=== PATIENT | male | born 1935 | race Caucasian/White ===

== ENCOUNTER → 2018-03-03 | Outpatient (CLI) | payer OTHER | END | disposition home or self-care (01) | LOC: RAH 07:41 | PROVIDERS: ATTEND Internal Medicine | DX: I70.90 Unspecified atherosclerosis (principal); Z87.891 Personal history of nicotine dependence | CPT/HCPCS: 76775 ==

== ENCOUNTER → 2018-06-24 | Outpatient (CLI) | payer OTHER ==
[~2018-06-24] MED LIST: ASPI-1197 PO; ISOS30TA6 PO; LISI2.5T2 PO; NITR0.4T50 SL; OXYB10TA PO; PRAV20TA4 PO; REGADENOSON 0.4 MG/5 ML PF SYG IVP SCH; TAMS0.4C32 PO
== END | disposition home or self-care (01) ==
LOC: SHCH 10:15
PROVIDERS: ATTEND Internal Medicine Cardiovascular Disease
DX: I25.119 Atherosclerotic heart disease of native coronary artery with unspecified angina pectoris (principal); R06.00 Dyspnea, unspecified
CPT/HCPCS: 78452; 93017; 96374; A9500 ×2; J2785

== ENCOUNTER → 2018-07-01 | Outpatient (CLI) | payer OTHER ==
[~2018-07-01] MED LIST changes: -REGADENOSON 0.4 MG/5 ML PF SYG IVP SCH
== END | disposition home or self-care (01) ==
LOC: SHCH 08:40
PROVIDERS: ATTEND Internal Medicine Cardiovascular Disease
DX: I25.10 Atherosclerotic heart disease of native coronary artery without angina pectoris (principal); R06.00 Dyspnea, unspecified
CPT/HCPCS: 93306

== ENCOUNTER → 2019-06-30 | Outpatient (CLI) | payer OTHER ==
[~2019-06-30] VITALS: Ht 177.8 cm; Wt 73.0 kg
[~2019-06-30] MED LIST changes: -OXYB10TA PO; +OXYB10TA2 PO; +REGADENOSON 0.4 MG/5 ML PF SYG IVP SCH
== END | disposition home or self-care (01) ==
LOC: SHCH 08:35
PROVIDERS: ATTEND Internal Medicine Cardiovascular Disease
DX: I25.119 Atherosclerotic heart disease of native coronary artery with unspecified angina pectoris (principal)
CPT/HCPCS: 78452; 93017; 96374; A9500 ×2; J2785

== ENCOUNTER → 2019-07-04 | Outpatient (CLI) | payer OTHER ==
[~2019-07-04] MED LIST changes: -REGADENOSON 0.4 MG/5 ML PF SYG IVP SCH
== END | disposition home or self-care (01) ==
LOC: RAH 13:26
PROVIDERS: ATTEND Internal Medicine
DX: M17.11 Unilateral primary osteoarthritis, right knee (principal); M79.671 Pain in right foot; M25.571 Pain in right ankle and joints of right foot; R22.9 Localized swelling, mass and lump, unspecified
CPT/HCPCS: 73562; 73610; 73630

== ENCOUNTER 2019-10-25 08:47 | Day surgery (SDC) | payer OTHER ==
[~2019-10-25 08:47] MED LIST changes: -ISOS30TA6 PO; -OXYB10TA2 PO; +OXYB10TA30 PO; +SODIUM CHLORIDE 0.9% 1000ML 1,000 ML IV ONE; -TAMS0.4C32 PO
[2019-10-25] MEDS ORDERED: CLOP75TA14 PO (09:26)
[2019-10-25] MEDS ORDERED: FERR325T22 PO (09:29)
[2019-10-25 09:42] VITALS: BP 136/65
[2019-10-25] MEDS ORDERED: PROPOFOL 10 MG/ML 20ML VIAL IV ONE ×3 (11:00→11:58)
[2019-10-25 12:08] VITALS: BP 134/65
[2019-10-25 12:13] VITALS: BP 131/65
[2019-10-25 12:18] VITALS: BP 136/65
[2019-10-25 12:23] VITALS: BP 124/65
[2019-10-25 12:28] VITALS: BP 126/65
--- NOTE | 2019-10-25 12:35 | NUR ---
dc pt dc home via w[facility],no distress noted. pt denied any pain or discomforts. pt accompanied by spouse.
== END 2019-10-25 12:35 | disposition home or self-care (01) ==
LOC: DAH 08:47 → ENDO 08:47
PROVIDERS: ATTEND Internal Medicine Gastroenterology
DX: D50.9 Iron deficiency anemia, unspecified (principal); K62.1 Rectal polyp; K57.30 Diverticulosis of large intestine without perforation or abscess without bleeding; K29.70 Gastritis, unspecified, without bleeding; K31.89 Other diseases of stomach and duodenum; I10 Essential (primary) hypertension; N40.0 Benign prostatic hyperplasia without lower urinary tract symptoms; R63.4 Abnormal weight loss; E78.5 Hyperlipidemia, unspecified; Z79.02 Long term (current) use of antithrombotics/antiplatelets; Z79.82 Long term (current) use of aspirin; Z95.5 Presence of coronary angioplasty implant and graft; Z98.49 Cataract extraction status, unspecified eye; Z68.21 Body mass index [BMI] 21.0-21.9, adult; Z79.01 Long term (current) use of anticoagulants; Z79.899 Other long term (current) drug therapy
CPT/HCPCS: 43239; 45381; 45385; A4215; A4221; A4222; A4223; A4606; A4620; A4649; A4663; J2704 ×3; J7030 ×2

== ENCOUNTER 2020-04-17 14:10 | Emergency (ER) | payer OTHER ==
[~2020-04-17 14:10] MED LIST changes: +CLOP75TA14 PO; +FERR325T22 PO; -SODIUM CHLORIDE 0.9% 1000ML 1,000 ML IV ONE
[2020-04-17] MEDS ORDERED: SODIUM CHLORIDE 0.9% 1000ML 1,000 ML IV ONE (14:11)
[2020-04-17] MEDS ORDERED: ONDANSETRON HCL 4 MG/2 ML VIAL ONE (14:44)
[2020-04-17 14:49] LABS: BASOPHILS % (AUTO) 0.3 % (0.0-5.0); HEMATOCRIT 38.3 % (42-54); LYMPHOCYTES % (AUTO) 16.3 % (21.0-51.0); MEAN CORPUSCULAR HEMOGLOBIN 29.9 pg (27.0-33.0); MEAN CORPUSCULAR HGB CONC 34.5 g/dL (32.0-36.0); MEAN CORPUSCULAR VOLUME 86.8 fL (79-99); MONOCYTES % (AUTO) 9.1 % (3.0-13.0); PLATELET COUNT (AUTO) 95 K/uL (130-400); RED BLOOD CELL COUNT(AUTO) 4.41 MIL/uL (4.50-6.20); RED CELL DISTRIBUTION WIDTH 13.2 % (11.0-15.5); WHITE BLOOD COUNT (AUTO) 3.2 K/uL (4.8-10.8)
[2020-04-17 14:58] LABS: CREATININE 1.5 mg/dL (0.5-1.5); POTASSIUM 4.6 mmol/L (3.5-5.1)
[2020-04-17 15:02] LABS: ALBUMIN 3.1 g/dL (3.5-5.0); BILIRUBIN,TOTAL 0.4 mg/dL (0.2-1.0)
== END 2020-04-17 17:25 | disposition home or self-care (01) ==
LOC: EDH 14:10
DX: U07.1 COVID-19 (principal); R11.10 Vomiting, unspecified; R42 Dizziness and giddiness; I10 Essential (primary) hypertension; Z87.891 Personal history of nicotine dependence
CPT/HCPCS: 36415; 80053; 84484; 85025; 93005; 96361; 96374; 99284; J2405; J7030

== ENCOUNTER 2020-04-19 17:19 | Inpatient (IN) | payer OTHER ==
[~2020-04-19] VITALS: Ht 177.8 cm; Wt 68.9 kg
[2020-04-19 18:21] LABS: BASOPHILS % (AUTO) 0.3 % (0.0-5.0); HEMATOCRIT 36.2 % (42-54); LYMPHOCYTES % (AUTO) 32.2 % (21.0-51.0); MEAN CORPUSCULAR HEMOGLOBIN 29.9 pg (27.0-33.0); MEAN CORPUSCULAR HGB CONC 34.3 g/dL (32.0-36.0); MEAN CORPUSCULAR VOLUME 87.2 fL (79-99); MONOCYTES % (AUTO) 10.4 % (3.0-13.0); NEUTROPHILS % (AUTO) 56.8 % (40.0-77.0); PLATELET COUNT (AUTO) 107 K/uL (130-400); RED BLOOD CELL COUNT(AUTO) 4.15 MIL/uL (4.50-6.20); RED CELL DISTRIBUTION WIDTH 13.2 % (11.0-15.5)
[2020-04-19 18:39] LABS: CREATININE 1.2 mg/dL (0.5-1.5); POTASSIUM 4.1 mmol/L (3.5-5.1)
[2020-04-19 18:50] LABS: ALBUMIN 2.6 g/dL (3.5-5.0); BILIRUBIN,TOTAL 0.3 mg/dL (0.2-1.0); TOTAL PROTEIN, SERUM 5.5 g/dL (6.0-8.3); TROPONIN I 0.06 ng/mL (0.00-0.06)
[2020-04-19] MEDS ORDERED: ONDANSETRON HCL 4 MG/2 ML VIAL ONE (18:56)
[2020-04-19] MEDS ORDERED: ACETAMINOPHEN 325 MG TAB ONE (18:57)
[2020-04-19 18:58] LABS: APPEARANCE,URINE CLEAR (CLEAR); BILIRUBIN,URINE NEGATIVE (NEGATIVE); COLOR,URINE YELLOW (YELLOW); GLUCOSE, URINE (UA) NEGATIVE (NEGATIVE); KETONES,URINE 5 mg/dL (NEGATIVE); LEUKOCYTE ESTERASE ,URINE NEGATIVE (NEGATIVE); NITRATE,URINE NEGATIVE (NEGATIVE); OCCULT BLOOD,URINE SMALL (NEGATIVE); PROTEIN,URINE 30 mg/dL (NEGATIVE); UROBILINOGEN,URINE 0.2 mg/dL (0.2-1.0)
[2020-04-19 19:04] LABS: PARTIAL THROMBOPLASTIN TIME 32.8 SEC (26.3-35.5); PROTHROMBIN TIME 10.8 SEC (9.6-11.6)
[2020-04-19 19:13] LABS: BACTERIA,URINE Few /HPF (None Seen); RBC,URINE None Seen /HPF (0-1); SQUAMOUS EPITHELIAL CELL,UR None Seen /HPF (0-2); WBC,URINE 0-1 /HPF (0-1)
[2020-04-19 19:22] LABS: BAND NEUTROPHILS % (MANUAL) 3 % (0-2); LYMPHOCYTES % (MANUAL) 19 % (22-44); MAN.DIFF COMMENT-IMPRESSION MANUAL DIFFERENTIAL; MONOCYTES % (MANUAL) 9 % (2-9); PLATELET MORPHOLOGY COMMENT SLIGHTLY DECREASED; REACTIVE LYMPHOCYTES 7 % (0-0); SEGMENTED NEUTROPHILS % 62 % (40-70)
[2020-04-19 20:04] LABS: ABG BASE EXCESS -1.2 mmol/L (-2.0-3.0); ABG HCO3 21.2 mmol/L (21.0-28.0); ABG OXYGEN SATURATION 94.7 % (95.0-99.0); ABG PCO2 30 mmHg (35-48)
[2020-04-19] MEDS ORDERED: ACETAMINOPHEN 325 MG TAB PO PRN ×2 (21:15)
[2020-04-19] MEDS: AZITHROMYCIN 500MG+NS 250ML 250 ML IV SCH (21:15)
[2020-04-19] MEDS ORDERED: ONDANSETRON HCL 4 MG/2 ML VIAL IV PRN (21:15)
[2020-04-19] MEDS ORDERED: DOXYCYCLINE 100MG+NS 250ML IV SCH (21:15)
[2020-04-19] MEDS ORDERED: ERGOCALCIFEROL (VITAMIN D2) 50,000 UNIT CAPSULE PO ONE (21:15)
[2020-04-19] MEDS: DOXYCYCLINE 100MG+NS 250ML 250 ML IV SCH (21:22)
[2020-04-19] MEDS ORDERED: AZITHROMYCIN 500MG+NS 250ML 250 ML IV ONE (21:53)
[2020-04-19] MEDS ORDERED: ERGOCALCIFEROL (VITAMIN D2) 50,000 UNIT CAPSULE ONE (21:54)
[2020-04-19] MEDS ORDERED: IOHEXOL-350 75 ML VIAL IV ONE (22:42)
[2020-04-19] MEDS ORDERED: DOXYCYCLINE 100MG+NS 250ML 250 ML IV ONE (23:11)
[2020-04-19] MEDS: SODIUM CHLORIDE 0.9% 1000ML 1,000 ML IV SCH (23:39)
[2020-04-20] VITALS: BP 150/90
[2020-04-20 04:00] VITALS: BP 126/48
[2020-04-20 06:03] LABS: LYMPHOCYTES % (AUTO) 34.5 % (21.0-51.0); MEAN CORPUSCULAR HGB CONC 34.4 g/dL (32.0-36.0); MONOCYTES % (AUTO) 7.1 % (3.0-13.0); NEUTROPHILS % (AUTO) 58.1 % (40.0-77.0); PLATELET COUNT (AUTO) 117 K/uL (130-400); RED BLOOD CELL COUNT(AUTO) 4.14 MIL/uL (4.50-6.20); RED CELL DISTRIBUTION WIDTH 13.2 % (11.0-15.5); WHITE BLOOD COUNT (AUTO) 3.1 K/uL (4.8-10.8)
[2020-04-20 06:27] LABS: ALBUMIN 2.5 g/dL (3.5-5.0); BILIRUBIN,TOTAL 0.5 mg/dL (0.2-1.0); CREATININE 1.2 mg/dL (0.5-1.5); CRP QUANTITATIVE 72.4 mg/L (0.00-9.0); POTASSIUM 4.3 mmol/L (3.5-5.1); TOTAL PROTEIN, SERUM 5.2 g/dL (6.0-8.3)
[2020-04-20 08:17] VITALS: BP 103/46
[2020-04-20] MEDS ORDERED: ENOXAPARIN SODIUM 40 MG/0.4 ML SYRINGE SQ SCH (09:00)
[2020-04-20] MEDS: ZINC SULFATE 220 CAPSULE PO SCH (09:15)
[2020-04-20] MEDS: ACETYLCYSTEINE 600 MG CAPSULE PO SCH ×2 (09:15→21:29)
[2020-04-20] MEDS: ASCORBIC ACID 500 MG TAB PO SCH (09:15)
[2020-04-20] MEDS: METHYLPREDNISOLONE SOD SUCC 40MG/ML 1ML IVP SCH ×3 (09:16→21:30)
[2020-04-20] MEDS: SODIUM CHLORIDE 0.9% 1000ML 1,000 ML IV SCH (11:29)
[2020-04-20 12:35] VITALS: BP 103/51
[2020-04-20] MEDS: DOXYCYCLINE 100MG+NS 250ML 250 ML IV SCH ×2 (14:20→21:29)
[2020-04-20 16:28] VITALS: BP 110/54
--- NOTE | 2020-04-20 18:20 | NUR ---
shift note pt aox2 with periodic confusion. vss. Consent for plasma obtained and sent to lab. covid rapid test done and positive. pending plasma release, will endorse to night leeanna.
--- NOTE | 2020-04-20 19:40 | NUR ---
(+) WAYNE CHOWDHURY-PENDING TO RECEIVE 2 PLASMA UNITS. Addendum: 04/21/20 at 0200 by GLENN HILLS RN RN Amended: Links added.
[2020-04-20 20:00] VITALS: BP 132/62
[2020-04-20] MEDS: AZITHROMYCIN 500MG+NS 250ML 250 ML IV SCH (21:29)
[2020-04-20] MEDS: ENOXAPARIN SODIUM 40 MG/0.4 ML SYRINGE SQ SCH (21:31)
[2020-04-21] VITALS: BP 140/62
--- NOTE | 2020-04-21 00:30 | NUR ---
PATIENT TO START TRANSFUSION OF 1 OF 2 UNITS OF CONVALESCENT PLASMA AT THIS TIME. WILL CONTINUE TO MONITOR.
--- NOTE | 2020-04-21 03:50 | NUR ---
PATIENT COMPLETED FIRST OF 2 UNITS OF CONVALESCENT PLASMA WITHOUT ANY ADVERSE REACTION. PATIENT AAOX3, DENIES DISCOMFORT. WILL CONTINUE TO MONITOR.
[2020-04-21 04:00] VITALS: BP 145/68
[2020-04-21 06:02] LABS: HEMATOCRIT 38.1 % (42-54); LYMPHOCYTES % (AUTO) 15.4 % (21.0-51.0); MEAN CORPUSCULAR HEMOGLOBIN 29.1 pg (27.0-33.0); MEAN CORPUSCULAR HGB CONC 33.6 g/dL (32.0-36.0); MEAN CORPUSCULAR VOLUME 86.6 fL (79-99); MONOCYTES % (AUTO) 6.1 % (3.0-13.0); NEUTROPHILS % (AUTO) 78.2 % (40.0-77.0); PLATELET COUNT (AUTO) 145 K/uL (130-400); RED CELL DISTRIBUTION WIDTH 13.3 % (11.0-15.5); WHITE BLOOD COUNT (AUTO) 3.1 K/uL (4.8-10.8)
[2020-04-21 06:34] LABS: ALANINE AMINOTRANSFERASE 39 U/L (12-78); ALBUMIN 2.5 g/dL (3.5-5.0); ASPARTATE AMINOTRANSFERASE 46 U/L (10-37); BILIRUBIN,TOTAL 0.4 mg/dL (0.2-1.0); CARBON DIOXIDE 24 mmol/L (21-32); CHLORIDE 105 mmol/L (101-111); GLOMERULAR FILTR. RATE CALC 75 mL/min (>60); GLUCOSE,RANDOM 157 mg/dL (70-105); LACTATE DEHYDROGENASE 232 U/L (81-234); POTASSIUM 4.1 mmol/L (3.5-5.1); SODIUM SERUM 139 mmol/L (136-145); TOTAL PROTEIN, SERUM 5.6 g/dL (6.0-8.3); UREA NITROGEN, BLOOD 19 mg/dL (7-18)
[2020-04-21 09:15] VITALS: BP 142/62
[2020-04-21] MEDS: DOXYCYCLINE 100MG+NS 250ML 250 ML IV SCH ×2 (09:18→20:20)
[2020-04-21] MEDS: METHYLPREDNISOLONE SOD SUCC 40MG/ML 1ML IVP SCH ×3 (09:18→20:20)
[2020-04-21] MEDS: ASCORBIC ACID 500 MG TAB PO SCH (09:19)
[2020-04-21] MEDS: ZINC SULFATE 220 CAPSULE PO SCH (09:19)
[2020-04-21] MEDS: ACETYLCYSTEINE 600 MG CAPSULE PO SCH ×2 (09:19→20:20)
[2020-04-21] MEDS: ENOXAPARIN SODIUM 40 MG/0.4 ML SYRINGE SQ SCH ×2 (09:20→20:20)
[2020-04-21 11:49] VITALS: BP 128/63
[2020-04-21 16:20] VITALS: BP 132/52
[2020-04-21] MEDS: AZITHROMYCIN 500MG+NS 250ML 250 ML IV SCH (20:20)
[2020-04-21 20:30] VITALS: BP 138/67
[2020-04-22 00:45] VITALS: BP 125/57
[2020-04-22 05:10] VITALS: BP 135/65
[2020-04-22 05:57] LABS: BASOPHILS % (AUTO) 0.1 % (0.0-5.0); HEMATOCRIT 37.2 % (42-54); LYMPHOCYTES % (AUTO) 5.5 % (21.0-51.0); MEAN CORPUSCULAR HEMOGLOBIN 29.4 pg (27.0-33.0); MEAN CORPUSCULAR HGB CONC 34.1 g/dL (32.0-36.0); MEAN CORPUSCULAR VOLUME 86.1 fL (79-99); MONOCYTES % (AUTO) 4.6 % (3.0-13.0); NEUTROPHILS % (AUTO) 89.1 % (40.0-77.0); PLATELET COUNT (AUTO) 183 K/uL (130-400); RED BLOOD CELL COUNT(AUTO) 4.32 MIL/uL (4.50-6.20); RED CELL DISTRIBUTION WIDTH 13.5 % (11.0-15.5); WHITE BLOOD COUNT (AUTO) 9.6 K/uL (4.8-10.8)
[2020-04-22 06:14] LABS: ALANINE AMINOTRANSFERASE 37 U/L (12-78); ALBUMIN 2.5 g/dL (3.5-5.0); ASPARTATE AMINOTRANSFERASE 39 U/L (10-37); BILIRUBIN,TOTAL 0.5 mg/dL (0.2-1.0); CARBON DIOXIDE 27 mmol/L (21-32); CHLORIDE 107 mmol/L (101-111); CREATININE 0.9 mg/dL (0.5-1.5); GLOMERULAR FILTR. RATE CALC 85 mL/min (>60); GLUCOSE,RANDOM 153 mg/dL (70-105); LACTATE DEHYDROGENASE 231 U/L (81-234); POTASSIUM 4.4 mmol/L (3.5-5.1); SODIUM SERUM 140 mmol/L (136-145); TOTAL PROTEIN, SERUM 5.5 g/dL (6.0-8.3); UREA NITROGEN, BLOOD 21 mg/dL (7-18)
[2020-04-22 08:00] VITALS: BP 134/57
[2020-04-22] MEDS: DOXYCYCLINE 100MG+NS 250ML 250 ML IV SCH (08:33)
[2020-04-22] MEDS: ZINC SULFATE 220 CAPSULE PO SCH (08:34)
[2020-04-22] MEDS: ASCORBIC ACID 500 MG TAB PO SCH (08:34)
[2020-04-22] MEDS: ACETYLCYSTEINE 600 MG CAPSULE PO SCH (08:34)
[2020-04-22] MEDS: ENOXAPARIN SODIUM 40 MG/0.4 ML SYRINGE SQ SCH (08:35)
[2020-04-22] MEDS: METHYLPREDNISOLONE SOD SUCC 40MG/ML 1ML IVP SCH ×2 (08:36→14:14)
[2020-04-22] MEDS ORDERED: ASPI-1012 PO ×2 (10:14)
[2020-04-22] MEDS ORDERED: BENZ-39 PO ×2 (10:14)
[2020-04-22] MEDS ORDERED: DEXA6TAB PO ×2 (10:14)
[2020-04-22 12:00] VITALS: BP 122/61
[2020-04-22 16:00] VITALS: BP 139/63
--- NOTE | 2020-04-22 17:20 | NUR ---
pt d/c home. iv removed. discharge instruction given to pt an dfamily. vss. room air d/c home accompagnied by grandson and private vehicle.
== END 2020-04-22 17:05 | disposition home or self-care (01) | DRG 177 ==
LOC: EDH 17:19 → EDHIP 21:10 → OBSVTOIN 21:10 → 4AH 23:27
PROVIDERS: ADMIT Internal Medicine; ATTEND Internal Medicine
PROC: XW13325 Transfusion of Convalescent Plasma (Nonautologous) into Peripheral Vein, Percutaneous Approach, New Technology Group 5 (ICD-10-PCS; principal; 2020-04-21)
DX: U07.1 COVID-19 (principal); J96.01 Acute respiratory failure with hypoxia; G93.41 Metabolic encephalopathy; J12.89 Other viral pneumonia; D61.818 Other pancytopenia; I25.10 Atherosclerotic heart disease of native coronary artery without angina pectoris; I10 Essential (primary) hypertension; E78.5 Hyperlipidemia, unspecified; I44.7 Left bundle-branch block, unspecified; Z82.49 Family history of ischemic heart disease and other diseases of the circulatory system; Z86.73 Personal history of transient ischemic attack (TIA), and cerebral infarction without residual deficits; Z87.891 Personal history of nicotine dependence; Z95.5 Presence of coronary angioplasty implant and graft; Z88.0 Allergy status to penicillin; Z88.8 Allergy status to other drugs, medicaments and biological substances
CPT/HCPCS: 36415; 36600; 70450; 71045; 71275; 80053; 81001; 82550; 82728; 82803; 83605; 83615; 83874; 84145; 84484; 85025; 85378; 85610; 85730; 86140; 86900; 86901; 86927; 87040; 87088; 87426; 87486; 87581; 87633; 87798; 93005; G0378; J0456; J1650; J2405; J2920; J3490; J7030; Q9967

== ENCOUNTER 2020-04-25 16:40 | Inpatient (IN) | payer OTHER ==
[~2020-04-25] VITALS: Ht 177.8 cm; Wt 66.2 kg
[~2020-04-25 16:40] MED LIST changes: +ASPI-1012 PO; +BENZ-39 PO; +DEXA6TAB PO
[2020-04-25] MEDS ORDERED: ONDANSETRON HCL 4 MG/2 ML VIAL ONE (17:19)
[2020-04-25] MEDS ORDERED: FAMOTIDINE/PF 20 MG/2 ML VIAL IV ONE (17:20)
[2020-04-25 17:21] LABS: BASOPHILS % (AUTO) 0.4 % (0.0-5.0); EOSINOPHILS % (AUTO) 1.3 % (0.0-8.0); HEMATOCRIT 42.2 % (42-54); MEAN CORPUSCULAR HEMOGLOBIN 29.3 pg (27.0-33.0); MEAN CORPUSCULAR HGB CONC 33.4 g/dL (32.0-36.0); MEAN CORPUSCULAR VOLUME 87.6 fL (79-99); MONOCYTES % (AUTO) 10.4 % (3.0-13.0); NEUTROPHILS % (AUTO) 70.5 % (40.0-77.0); PLATELET COUNT (AUTO) 194 K/uL (130-400); RED BLOOD CELL COUNT(AUTO) 4.82 MIL/uL (4.50-6.20); RED CELL DISTRIBUTION WIDTH 13.6 % (11.0-15.5); WHITE BLOOD COUNT (AUTO) 5.5 K/uL (4.8-10.8)
[2020-04-25] MEDS ORDERED: METHYLPREDNISOLONE SOD SUCC 40MG/ML 1ML ONE (17:51)
[2020-04-25] MEDS ORDERED: DOXYCYCLINE 100MG+NS 250ML 250 ML IV ONE (17:52)
[2020-04-25 18:03] LABS: CREATININE 0.9 mg/dL (0.5-1.5)
[2020-04-25 18:08] LABS: ALBUMIN 2.5 g/dL (3.5-5.0); BILIRUBIN,TOTAL 0.7 mg/dL (0.2-1.0); TOTAL PROTEIN, SERUM 5.9 g/dL (6.0-8.3)
[2020-04-25 19:20] LABS: ABG BASE EXCESS 0.6 mmol/L (-2.0-3.0); ABG HCO3 23.4 mmol/L (21.0-28.0); ABG PCO2 32 mmHg (35-48)
[2020-04-25 19:43] LABS: PARTIAL THROMBOPLASTIN TIME 29.3 SEC (26.3-35.5); PROTHROMBIN TIME 10.8 SEC (9.6-11.6)
[2020-04-25 20:27] LABS: APPEARANCE,URINE Clear (CLEAR); BILIRUBIN,URINE Negative (NEGATIVE); COLOR,URINE Dark Yellow (YELLOW); GLUCOSE, URINE (UA) Negative (NEGATIVE); KETONES,URINE Trace mg/dL (NEGATIVE); LEUKOCYTE ESTERASE ,URINE Trace (NEGATIVE); NITRATE,URINE Negative (NEGATIVE); OCCULT BLOOD,URINE Negative (NEGATIVE); PROTEIN,URINE POS 1+ mg/dL (NEGATIVE)
[2020-04-25 21:01] LABS: CREATINE KINASE, TOTAL 20 U/L (21-232); MYOGLOBIN 37 ng/mL (10-92); TROPONIN I < 0.04 ng/mL (0.00-0.06)
[2020-04-25 21:03] LABS: BACTERIA,URINE Few /HPF (None Seen); MUCUS,URINE Few LPF (None Seen); SQUAMOUS EPITHELIAL CELL,UR 0-2 /HPF (0-2)
[2020-04-25] MEDS ORDERED: MEROPENEM 1 GM VIAL ONE (21:10)
[2020-04-25] MEDS ORDERED: SODIUM CHLORIDE 0.9% 50 ML IV ONE (21:11)
[2020-04-25] MEDS: SODIUM CHLORIDE 0.9% 1000ML 1,000 ML IV SCH (21:36)
[2020-04-25] MEDS ORDERED: DOXYCYCLINE 100MG+NS 250ML IV SCH (21:45)
[2020-04-25] MEDS ORDERED: ERGOCALCIFEROL (VITAMIN D2) 50,000 UNIT CAPSULE PO ONE (21:45)
[2020-04-25] MEDS ORDERED: ONDANSETRON HCL 4 MG/2 ML VIAL IV PRN (21:45)
[2020-04-25] MEDS ORDERED: ACETAMINOPHEN 325 MG TAB PO PRN ×2 (21:45)
[2020-04-25] MEDS ORDERED: AZITHROMYCIN 500MG+NS 250ML 250 ML IV SCH (21:45)
[2020-04-25] MEDS ORDERED: IOHEXOL 350 MG/ML 100ML INFUS..BTL IV ONE (22:21)
[2020-04-26] MEDS ORDERED: METHYLPREDNISOLONE SOD SUCC 40MG/ML 1ML ONE ×2 (00:25→07:53)
[2020-04-26] MEDS ORDERED: AZITHROMYCIN 500MG+NS 250ML 250 ML IV ONE (00:26)
[2020-04-26] MEDS ORDERED: ERGOCALCIFEROL (VITAMIN D2) 50,000 UNIT CAPSULE ONE (00:26)
[2020-04-26] MEDS ORDERED: DOXYCYCLINE 100MG+NS 250ML 0 ML IV ONE (00:27)
[2020-04-26 04:16] LABS: HEMATOCRIT 36.9 % (42-54); LYMPHOCYTES % (AUTO) 12.8 % (21.0-51.0); MEAN CORPUSCULAR HEMOGLOBIN 29.4 pg (27.0-33.0); MEAN CORPUSCULAR HGB CONC 33.6 g/dL (32.0-36.0); MEAN CORPUSCULAR VOLUME 87.4 fL (79-99); MONOCYTES % (AUTO) 3.7 % (3.0-13.0); NEUTROPHILS % (AUTO) 80.6 % (40.0-77.0); PLATELET COUNT (AUTO) 176 K/uL (130-400); RED BLOOD CELL COUNT(AUTO) 4.22 MIL/uL (4.50-6.20); RED CELL DISTRIBUTION WIDTH 13.5 % (11.0-15.5); WHITE BLOOD COUNT (AUTO) 3.8 K/uL (4.8-10.8)
[2020-04-26 04:36] LABS: ALANINE AMINOTRANSFERASE 91 U/L (12-78); ALBUMIN 2.3 g/dL (3.5-5.0); ASPARTATE AMINOTRANSFERASE 42 U/L (10-37); BILIRUBIN,TOTAL 0.7 mg/dL (0.2-1.0); CARBON DIOXIDE 26 mmol/L (21-32); CHLORIDE 104 mmol/L (101-111); CREATININE 0.9 mg/dL (0.5-1.5); GLOMERULAR FILTR. RATE CALC 85 mL/min (>60); GLUCOSE,RANDOM 173 mg/dL (70-105); LACTATE DEHYDROGENASE 212 U/L (81-234); POTASSIUM 4.4 mmol/L (3.5-5.1); SODIUM SERUM 138 mmol/L (136-145); TOTAL PROTEIN, SERUM 5.6 g/dL (6.0-8.3); UREA NITROGEN, BLOOD 21 mg/dL (7-18)
[2020-04-26] MEDS: SODIUM CHLORIDE 0.9% 1000ML 1,000 ML IV SCH (07:36)
[2020-04-26] MEDS ORDERED: ZINC SULFATE 220 CAPSULE ONE (07:53)
[2020-04-26] MEDS ORDERED: ACETYLCYSTEINE 600 MG CAPSULE ONE (07:53)
[2020-04-26] MEDS ORDERED: ASCORBIC ACID 500 MG TAB ONE (07:53)
[2020-04-26] MEDS ORDERED: ENOXAPARIN SODIUM 40 MG/0.4 ML SYRINGE SQ ONE (07:54)
[2020-04-26] MEDS ORDERED: DOXYCYCLINE 100MG+NS 250ML 250 ML IV ONE (07:54)
[2020-04-26] MEDS ORDERED: FAMOTIDINE/PF 20 MG/2 ML VIAL IV ONE (07:55)
[2020-04-26] MEDS: ASCORBIC ACID 500 MG TAB PO SCH (09:00)
[2020-04-26] MEDS: FAMOTIDINE/PF 20 MG/2 ML VIAL IV SCH ×2 (09:00→20:24)
[2020-04-26] MEDS: ACETYLCYSTEINE 600 MG CAPSULE PO SCH ×2 (09:00→20:27)
[2020-04-26] MEDS ORDERED: ENOXAPARIN SODIUM 40 MG/0.4 ML SYRINGE SQ SCH (09:00)
[2020-04-26] MEDS: ZINC SULFATE 220 CAPSULE PO SCH (09:00)
[2020-04-26] MEDS ORDERED: METHYLPREDNISOLONE SOD SUCC 40MG/ML 1ML IVP SCH (09:00)
[2020-04-26] MEDS ORDERED: ERGOCALCIFEROL (VITAMIN D2) 50,000 UNIT CAPSULE PO SCH (10:00)
[2020-04-26] MEDS: AZITHROMYCIN 250 MG TABLET PO SCH (10:15)
[2020-04-26] MEDS: ENOXAPARIN SODIUM 40 MG/0.4 ML SYRINGE SQ SCH ×2 (10:15→20:23)
[2020-04-26] MEDS: METHYLPREDNISOLONE SOD SUCC 40MG/ML 1ML IVP SCH ×2 (10:30→18:30)
--- NOTE | 2020-04-26 11:09 | NUR ---
patient still in ER department, awaiting for patient to be transferred to medical floor in order to be able to initiate skilled Physical Therapy Evaluation as order by . Addendum: 04/26/20 at 1110 by JEANNINE MASON, PT PT Amended: Links added.
[2020-04-26] MEDS ORDERED: AZITHROMYCIN 250 MG TABLET PO ONE (12:01)
--- NOTE | 2020-04-26 16:14 | NUR ---
CM NOTE/IA UNABLE TO MEET WITH PATIENT, NEXT OF KIN CALLED, SHAI VILLEDA. PER SPOUSE, IS IN ED HERSELF FOR SIMILAR SYMPTOMS. PER SPOUSE, PATIENT LIVES WITH HER, IS NORMALLY INDEPENDENT WITH BUT HAS BEEN VERY WEAK, NO USE OF DME OR HOME HEALTH, AND SPOUSE IS OPEN TO [facility] IF MD RECOMMENDS. Addendum: 04/26/20 at 1621 by LORA KING RN CM Amended: Links added.
[2020-04-26 16:49] VITALS: BP 127/60
[2020-04-26] MEDS ORDERED: ISOS30TA6 PO (18:24)
[2020-04-26] MEDS ORDERED: CLOP75TA32 PO (18:24)
[2020-04-26] MEDS ORDERED: FERR-82 PO (18:24)
[2020-04-26] MEDS ORDERED: PRAV40TA3 PO (18:24)
[2020-04-26] MEDS ORDERED: tamsulosin PO (18:24)
[2020-04-26 21:32] VITALS: BP 136/67
[2020-04-27 00:31] VITALS: BP 131/58
--- NOTE | 2020-04-27 02:00 | NUR ---
Patient with period of confusion, pull out his IV access and shelter monitor. Pressure dressing applied at site. IV restart to right fore arm, 20 moises with good blood return. Patient reoriented to environment. Bed bath given, gown changed. Patient daughter delivered his reading glasses at start of shift. Glasses with pt at bedside. No new variance at this time. Patient is in stable condition. Following POC.
[2020-04-27] MEDS: METHYLPREDNISOLONE SOD SUCC 40MG/ML 1ML IVP SCH ×3 (02:32→17:34)
[2020-04-27 04:51] VITALS: BP 145/84
[2020-04-27 04:52] LABS: BASOPHILS % (AUTO) 0.1 % (0.0-5.0); LYMPHOCYTES % (AUTO) 10.1 % (21.0-51.0); MEAN CORPUSCULAR HEMOGLOBIN 29.6 pg (27.0-33.0); MEAN CORPUSCULAR HGB CONC 34.3 g/dL (32.0-36.0); MEAN CORPUSCULAR VOLUME 86.2 fL (79-99); MONOCYTES % (AUTO) 6.6 % (3.0-13.0); NEUTROPHILS % (AUTO) 82.2 % (40.0-77.0); PLATELET COUNT (AUTO) 203 K/uL (130-400); RED BLOOD CELL COUNT(AUTO) 4.06 MIL/uL (4.50-6.20); RED CELL DISTRIBUTION WIDTH 13.4 % (11.0-15.5); WHITE BLOOD COUNT (AUTO) 6.9 K/uL (4.8-10.8)
[2020-04-27 05:07] LABS: ALANINE AMINOTRANSFERASE 63 U/L (12-78); ALBUMIN 2.1 g/dL (3.5-5.0); ASPARTATE AMINOTRANSFERASE 27 U/L (10-37); BILIRUBIN,TOTAL 0.6 mg/dL (0.2-1.0); CARBON DIOXIDE 24 mmol/L (21-32); CHLORIDE 107 mmol/L (101-111); CREATININE 0.8 mg/dL (0.5-1.5); GLOMERULAR FILTR. RATE CALC 97 mL/min (>60); GLUCOSE,RANDOM 126 mg/dL (70-105); LACTATE DEHYDROGENASE 175 U/L (81-234); SODIUM SERUM 141 mmol/L (136-145); TOTAL PROTEIN, SERUM 5.1 g/dL (6.0-8.3); UREA NITROGEN, BLOOD 20 mg/dL (7-18)
[2020-04-27 06:56] VITALS: BP 133/67
[2020-04-27] MEDS ORDERED: DEXAMETHASONE 4 MG TAB PO SCH (09:00)
[2020-04-27] MEDS ORDERED: ASCORBIC ACID 500 MG TAB PO SCH (09:00)
[2020-04-27] MEDS ORDERED: ZINC SULFATE 220 CAPSULE PO SCH (09:00)
[2020-04-27] MEDS: ASCORBIC ACID 500 MG TAB PO SCH (09:40)
[2020-04-27] MEDS: ASPIRIN 81MG TAB.CHEW PO SCH (09:40)
[2020-04-27] MEDS: ACETYLCYSTEINE 600 MG CAPSULE PO SCH ×2 (09:40→21:15)
[2020-04-27] MEDS: ENOXAPARIN SODIUM 40 MG/0.4 ML SYRINGE SQ SCH ×2 (09:41→21:14)
[2020-04-27] MEDS: FAMOTIDINE/PF 20 MG/2 ML VIAL IV SCH ×2 (09:41→21:13)
[2020-04-27] MEDS: ZINC SULFATE 220 CAPSULE PO SCH (09:41)
[2020-04-27] MEDS: AZITHROMYCIN 250 MG TABLET PO SCH (10:46)
--- NOTE | 2020-04-27 11:06 | NUR ---
spoke with son in [place], halfway plan was discharged assisted living to help with patient & spouse, updated on patient status.
[2020-04-27 11:27] VITALS: BP 148/67
--- NOTE | 2020-04-27 13:24 | NUR ---
Up to bedside chair for meal, standby assist to avoid fall; linens & gown changed, non-skid socks applied; speaking to ad lynette.
[2020-04-27 15:52] VITALS: BP 143/53
[2020-04-27 20:55] VITALS: BP 125/58
[2020-04-27 21:54] LABS: BASOPHILS % (AUTO) 0.1 % (0.0-5.0); LYMPHOCYTES % (AUTO) 6.3 % (21.0-51.0); MEAN CORPUSCULAR HEMOGLOBIN 29.7 pg (27.0-33.0); MEAN CORPUSCULAR HGB CONC 34.1 g/dL (32.0-36.0); MEAN CORPUSCULAR VOLUME 87.3 fL (79-99); MONOCYTES % (AUTO) 6.4 % (3.0-13.0); NEUTROPHILS % (AUTO) 86.2 % (40.0-77.0); PLATELET COUNT (AUTO) 251 K/uL (130-400); RED BLOOD CELL COUNT(AUTO) 4.24 MIL/uL (4.50-6.20); RED CELL DISTRIBUTION WIDTH 13.3 % (11.0-15.5); WHITE BLOOD COUNT (AUTO) 7.3 K/uL (4.8-10.8)
[2020-04-28 00:22] VITALS: BP 145/70
[2020-04-28] MEDS: METHYLPREDNISOLONE SOD SUCC 40MG/ML 1ML IVP SCH ×3 (02:26→18:00)
[2020-04-28 04:12] VITALS: BP 152/67
[2020-04-28 05:18] LABS: BASOPHILS % (AUTO) 0.1 % (0.0-5.0); MEAN CORPUSCULAR HEMOGLOBIN 29.2 pg (27.0-33.0); MEAN CORPUSCULAR HGB CONC 33.8 g/dL (32.0-36.0); MEAN CORPUSCULAR VOLUME 86.4 fL (79-99); MONOCYTES % (AUTO) 5.6 % (3.0-13.0); NEUTROPHILS % (AUTO) 85.5 % (40.0-77.0); PLATELET COUNT (AUTO) 236 K/uL (130-400); RED BLOOD CELL COUNT(AUTO) 4.28 MIL/uL (4.50-6.20); RED CELL DISTRIBUTION WIDTH 13.2 % (11.0-15.5); WHITE BLOOD COUNT (AUTO) 7.4 K/uL (4.8-10.8)
[2020-04-28 05:43] LABS: ALANINE AMINOTRANSFERASE 67 U/L (12-78); ALBUMIN 2.2 g/dL (3.5-5.0); ASPARTATE AMINOTRANSFERASE 30 U/L (10-37); BILIRUBIN,TOTAL 0.7 mg/dL (0.2-1.0); CARBON DIOXIDE 25 mmol/L (21-32); CHLORIDE 106 mmol/L (101-111); CREATININE 0.8 mg/dL (0.5-1.5); GLOMERULAR FILTR. RATE CALC 97 mL/min (>60); GLUCOSE,RANDOM 140 mg/dL (70-105); LACTATE DEHYDROGENASE 194 U/L (81-234); POTASSIUM 4.2 mmol/L (3.5-5.1); SODIUM SERUM 139 mmol/L (136-145); TOTAL PROTEIN, SERUM 5.2 g/dL (6.0-8.3); UREA NITROGEN, BLOOD 28 mg/dL (7-18)
[2020-04-28 07:00] VITALS: BP 155/77
[2020-04-28] MEDS: FAMOTIDINE/PF 20 MG/2 ML VIAL IV SCH ×2 (09:12→21:12)
[2020-04-28] MEDS: ACETYLCYSTEINE 600 MG CAPSULE PO SCH ×2 (09:12→21:12)
[2020-04-28] MEDS: ZINC SULFATE 220 CAPSULE PO SCH (09:12)
[2020-04-28] MEDS: ASPIRIN 81MG TAB.CHEW PO SCH (09:12)
[2020-04-28] MEDS: ASCORBIC ACID 500 MG TAB PO SCH (09:12)
[2020-04-28] MEDS: ENOXAPARIN SODIUM 40 MG/0.4 ML SYRINGE SQ SCH ×2 (09:13→21:16)
[2020-04-28] MEDS: AZITHROMYCIN 250 MG TABLET PO SCH (10:39)
[2020-04-28 11:00] VITALS: BP 126/61
--- NOTE | 2020-04-28 12:41 | NUR ---
held for regular therapist janet Addendum: 04/28/20 at 1241 by ZACHERY TIJERINA, PT PT Amended: Links added.
[2020-04-28 16:00] VITALS: BP 141/64
[2020-04-28 20:15] VITALS: BP 131/61
[2020-04-28 21:55] LABS: BASOPHILS % (AUTO) 0.1 % (0.0-5.0); HEMATOCRIT 38.2 % (42-54); LYMPHOCYTES % (AUTO) 7.1 % (21.0-51.0); MEAN CORPUSCULAR HEMOGLOBIN 29.6 pg (27.0-33.0); MONOCYTES % (AUTO) 4.6 % (3.0-13.0); NEUTROPHILS % (AUTO) 87.1 % (40.0-77.0); PLATELET COUNT (AUTO) 268 K/uL (130-400); RED BLOOD CELL COUNT(AUTO) 4.39 MIL/uL (4.50-6.20); RED CELL DISTRIBUTION WIDTH 13.2 % (11.0-15.5); WHITE BLOOD COUNT (AUTO) 9.3 K/uL (4.8-10.8)
[2020-04-29] VITALS (7 sets, daily range): BP systolic 132–167; BP diastolic 64–75
[2020-04-29] MEDS: METHYLPREDNISOLONE SOD SUCC 40MG/ML 1ML IVP SCH ×3 (03:31→18:35)
[2020-04-29 04:44] LABS: BASOPHILS % (AUTO) 0.1 % (0.0-5.0); HEMATOCRIT 35.9 % (42-54); LYMPHOCYTES % (AUTO) 12.6 % (21.0-51.0); MEAN CORPUSCULAR HEMOGLOBIN 29.4 pg (27.0-33.0); MEAN CORPUSCULAR VOLUME 86.5 fL (79-99); MONOCYTES % (AUTO) 7.8 % (3.0-13.0); NEUTROPHILS % (AUTO) 78.5 % (40.0-77.0); PLATELET COUNT (AUTO) 227 K/uL (130-400); RED BLOOD CELL COUNT(AUTO) 4.15 MIL/uL (4.50-6.20); RED CELL DISTRIBUTION WIDTH 13.2 % (11.0-15.5); WHITE BLOOD COUNT (AUTO) 7.7 K/uL (4.8-10.8)
[2020-04-29 05:02] LABS: ALBUMIN 2.3 g/dL (3.5-5.0); BILIRUBIN,TOTAL 0.6 mg/dL (0.2-1.0); CREATININE 0.8 mg/dL (0.5-1.5); POTASSIUM 4.5 mmol/L (3.5-5.1); TOTAL PROTEIN, SERUM 5.1 g/dL (6.0-8.3)
[2020-04-29] MEDS: ASCORBIC ACID 500 MG TAB PO SCH (08:39)
[2020-04-29] MEDS: FAMOTIDINE/PF 20 MG/2 ML VIAL IV SCH ×2 (08:39→21:08)
[2020-04-29] MEDS: ZINC SULFATE 220 CAPSULE PO SCH (08:39)
[2020-04-29] MEDS: ACETYLCYSTEINE 600 MG CAPSULE PO SCH ×2 (08:39→21:08)
[2020-04-29] MEDS: ASPIRIN 81MG TAB.CHEW PO SCH (08:39)
[2020-04-29] MEDS: ENOXAPARIN SODIUM 40 MG/0.4 ML SYRINGE SQ SCH ×2 (08:41→21:13)
--- NOTE | 2020-04-29 09:34 | NUR ---
cm note call made to pt's spouse regarding [facility] has called and said that they have approval for mr puente at at [facility], however, pt now states that they wish to go to [facility] and do not want to go to [facility]. requested that i cancel the referral to [facility] for Ms and Mr Puente, call made to Ann with [facility] and updated on this. states she will cancel the referrals. updated Lisa with [facility] and states will submit request, and has rooms for both pts. per lisa she did update daughter as well.
[2020-04-30] MEDS: METHYLPREDNISOLONE SOD SUCC 40MG/ML 1ML IVP SCH ×3 (01:51→18:18)
[2020-04-30 03:09] VITALS: BP 156/69
[2020-04-30 04:46] LABS: ALBUMIN 2.3 g/dL (3.5-5.0); BILIRUBIN,TOTAL 0.8 mg/dL (0.2-1.0); CREATININE 0.8 mg/dL (0.5-1.5); POTASSIUM 4.3 mmol/L (3.5-5.1); TOTAL PROTEIN, SERUM 5.1 g/dL (6.0-8.3)
[2020-04-30] MEDS: ACETYLCYSTEINE 600 MG CAPSULE PO SCH (08:50)
[2020-04-30] MEDS: ASPIRIN 81MG TAB.CHEW PO SCH (08:50)
[2020-04-30] MEDS: ZINC SULFATE 220 CAPSULE PO SCH (08:51)
[2020-04-30] MEDS: ENOXAPARIN SODIUM 40 MG/0.4 ML SYRINGE SQ SCH (08:51)
[2020-04-30] MEDS: ASCORBIC ACID 500 MG TAB PO SCH (08:51)
[2020-04-30] MEDS: FAMOTIDINE/PF 20 MG/2 ML VIAL IV SCH (08:51)
[2020-04-30 10:01] VITALS: BP 145/66
--- NOTE | 2020-04-30 15:38 | NUR ---
Report Called Called report to [facility] to [facility]. All questions answered and concerns addressed at this time. Will notify EMS of transfer. Pt and pt's updated on POC, both verbalize understanding.
--- NOTE | 2020-04-30 16:17 | NUR ---
DC PLAN LET DR. LARIOS KNOW THAT PATIENT ACCEPTED TO [facility]. GAVE OKAY TO DC ON CURRENT MEDICATIONS. LET NURSE KNOW. EMS SET UP. PER SARAH DUE TO POSITIVE COVID NOT ABLE TO GO VIA [facility]. EMS SET UP FOR DEBILITY. Addendum: 04/30/20 at 1626 by CARMEN LING RN CM Amended: Links added.
--- NOTE | 2020-04-30 18:36 | NUR ---
Pt discharged to [facility] via EMS. IV access and tele monitor removed. Pt denies any needs or complaints. Facesheet and pt information packet given to EMS paramedics, all questions answered and concerns addressed.
== END 2020-04-30 18:35 | DRG 177 ==
LOC: EDH 16:40 → EDHIP 21:36 → 2DH 04-26 16:34
PROVIDERS: ADMIT Internal Medicine; ATTEND Internal Medicine
DX: U07.1 COVID-19 (principal); J12.89 Other viral pneumonia; E46 Unspecified protein-calorie malnutrition; I25.10 Atherosclerotic heart disease of native coronary artery without angina pectoris; E78.5 Hyperlipidemia, unspecified; I10 Essential (primary) hypertension; Z82.49 Family history of ischemic heart disease and other diseases of the circulatory system; Z87.891 Personal history of nicotine dependence; Z95.5 Presence of coronary angioplasty implant and graft; Z88.0 Allergy status to penicillin; Z88.8 Allergy status to other drugs, medicaments and biological substances; Z68.22 Body mass index [BMI] 22.0-22.9, adult
CPT/HCPCS: 36415; 36600; 70450; 71045; 71275; 80053; 81001; 82550; 82728; 82803; 83605; 83615; 83874; 84145; 84484; 85025; 85378; 85610; 85730; 86140; 86900; 86901; 87040; 87088; 87426; 93005; 97039; G0378; J0456; J1650; J2185; J2405; J2920; J3490; J7030; Q9967; U0003

== ENCOUNTER → 2022-10-08 | Outpatient (CLI) | payer OTHER ==
[~2022-10-08] MED LIST changes: +CLOP-31 PO; -CLOP75TA14 PO; +CLOP75TA32 PO; +FERR-82 PO; +ISOS30TA92 PO; +LISI2.5T13 PO; -LISI2.5T2 PO; +PRAV40TA3 PO; +tamsulosin PO
[2022-10-08 12:56] LABS: BASOPHILS % (AUTO) 0.5 % (0.0-5.0); EOSINOPHILS % (AUTO) 2.9 % (0.0-8.0); HEMATOCRIT 39.9 % (42-54); LYMPHOCYTES % (AUTO) 37.1 % (21.0-51.0); MEAN CORPUSCULAR HEMOGLOBIN 28.9 pg (27.0-33.0); MEAN CORPUSCULAR HGB CONC 32.3 g/dL (32.0-36.0); MEAN CORPUSCULAR VOLUME 89.5 fL (79-99); MONOCYTES % (AUTO) 5.9 % (3.0-13.0); NEUTROPHILS % (AUTO) 53.4 % (40.0-77.0); PLATELET COUNT (AUTO) 162 K/uL (130-400); RED BLOOD CELL COUNT(AUTO) 4.46 MIL/uL (4.50-6.20); RED CELL DISTRIBUTION WIDTH 13.8 % (11.0-15.5); WHITE BLOOD COUNT (AUTO) 4.1 K/uL (4.8-10.8)
== END | disposition home or self-care (01) ==
LOC: LAB 11:54
PROVIDERS: ATTEND Internal Medicine Cardiovascular Disease
DX: I10 Essential (primary) hypertension (principal)
CPT/HCPCS: 36415; 85025